=== PATIENT | female | born 1935 | race Caucasian/White ===

== ENCOUNTER 2018-02-12 12:01 | Outpatient (CLI) | payer OTHER | END 2018-02-12 12:14 | disposition home or self-care (01) | LOC: RAD 12:01 | DX: M25.561 Pain in right knee (principal); Z96.651 Presence of right artificial knee joint ==

== ENCOUNTER 2018-04-17 08:53 | Outpatient (CLI) | payer OTHER | END 2018-04-17 09:20 | disposition home or self-care (01) | LOC: RAD 501 08:53 | DX: M17.12 Unilateral primary osteoarthritis, left knee (principal) ==

== ENCOUNTER 2018-04-18 09:32 | Outpatient (CLI) | payer OTHER | END 2018-04-18 09:36 | disposition home or self-care (01) | LOC: LAB 09:32 → RAD 09:32 → LAB 09:36 | DX: D64.89 Other specified anemias (principal); E88.89 Other specified metabolic disorders; D68.8 Other specified coagulation defects; N39.0 Urinary tract infection, site not specified; R82.79 Other abnormal findings on microbiological examination of urine; A49.02 Methicillin resistant Staphylococcus aureus infection, unspecified site; Z76.89 Persons encountering health services in other specified circumstances; M79.652 Pain in left thigh; M79.605 Pain in left leg; I49.8 Other specified cardiac arrhythmias ==

== ENCOUNTER 2018-04-25 09:34 | Outpatient (CLI) | payer OTHER | END 2018-04-25 09:40 | disposition home or self-care (01) | LOC: LAB 09:34 | DX: N39.0 Urinary tract infection, site not specified (principal) ==

== ENCOUNTER 2018-04-30 17:46 | Inpatient (IN) | payer OTHER ==
[~2018-04-30] VITALS: Ht 152.4 cm; Wt 70.8 kg
[2018-05-01] MEDS ORDERED: DIOVAN160 M1 PO (08:03)
[2018-05-01] MEDS ORDERED: VOLTAREN100 GM PO (08:04)
[2018-05-01] MEDS ORDERED: OSTERA TABLET1 EACH PO (08:04)
[2018-05-01] MEDS ORDERED: M.V.I. ADULT10 ML PO (08:05)
[2018-05-01] MEDS ORDERED: SKELAXIN800 MG PO (08:06)
[2018-05-01] MEDS ORDERED: ZOLOFT25 MG PO (08:06)
[2018-05-09] MEDS ORDERED: XARELTO10 MG PO (09:05)
== END 2018-05-09 10:51 | disposition home or self-care (01) | DRG 470 ==
LOC: O/R 05-06 06:00 → SURG 05-06 06:00
PROVIDERS: Orthopaedic Surgery
PROC: 0LX Tendons, Transfer (ICD-10-PCS; 2018-05-06)
PROC: 30233N1 Transfusion of Nonautologous Red Blood Cells into Peripheral Vein, Percutaneous Approach (ICD-10-PCS; 2018-05-06)
PROC: 0SRD0J9 Replacement of Left Knee Joint with Synthetic Substitute, Cemented, Open Approach (ICD-10-PCS; principal; 2018-05-06 07:00)
DX: M17.12 Unilateral primary osteoarthritis, left knee (principal); D62 Acute posthemorrhagic anemia; M85.462 Solitary bone cyst, left tibia and fibula; I10 Essential (primary) hypertension; H40.89 Other specified glaucoma

== ENCOUNTER 2018-08-20 10:46 | Outpatient (CLI) | payer OTHER ==
[~2018-08-20 10:46] MED LIST: DIOVAN160 M1 PO; M.V.I. ADULT10 ML PO; OSTERA TABLET1 EACH PO; SKELAXIN800 MG PO; VOLTAREN100 GM PO; XARELTO10 MG PO; ZOLOFT25 MG PO
== END 2018-08-20 10:58 | disposition home or self-care (01) ==
LOC: RAD 501 10:46
DX: M25.562 Pain in left knee (principal); M25.571 Pain in right ankle and joints of right foot

== ENCOUNTER 2018-09-17 09:53 | Outpatient (CLI) | payer OTHER | END 2018-09-17 10:00 | disposition home or self-care (01) | LOC: NUCLEAR 09:53 | DX: T84.84XA Pain due to internal orthopedic prosthetic devices, implants and grafts, initial encounter (principal) | CPT/HCPCS: 78315; 78802; A9503; A9556 ==

== ENCOUNTER 2019-12-02 13:47 | Outpatient (CLI) | payer OTHER | END 2019-12-02 13:57 | disposition home or self-care (01) | LOC: RAD 13:47 | DX: T84.032A Mechanical loosening of internal right knee prosthetic joint, initial encounter (principal) ==